=== PATIENT | male | born 1940 | race Caucasian/White ===

== ENCOUNTER 2016-08-31 13:36 | Observation (INO) | payer OTHER ==
[~2016-08-31 13:36] MED LIST: ceFAZolin 2 GM/DEXTROSE 100 ML IV ONE
[2016-08-31] MEDS ORDERED: LIDOCAINE 1% 2 ML INJ ONE (14:20)
[2016-08-31] MEDS ORDERED: CEFAZOLIN 2 GM/DEXTROSE/100 ML BAG IV ONE (14:20)
[2016-08-31] MEDS ORDERED: fentaNYL 100 MCG/2 ML INJ ONE ×2 (15:45→16:22)
[2016-08-31] MEDS ORDERED: MIDAZOLAM 2 MG/2 ML VIAL ONE (15:47)
[2016-08-31] MEDS ORDERED: ROCURONIUM 50 MG/5 ML VIAL ONE (16:19)
[2016-08-31] MEDS ORDERED: ROPIVACAINE HCL 150 MG/30 ML INJ ONE (16:19)
[2016-08-31] MEDS ORDERED: LIDOCAINE 2% 5 ML SDV ONE (16:19)
[2016-08-31] MEDS ORDERED: GLYCOPYRROLATE 0.2 MG/1 ML VIAL ONE (16:19)
[2016-08-31] MEDS ORDERED: PROPOFOL/EMULSION 500 MG/50 ML BOTTLE IV ONE (16:20)
[2016-08-31] MEDS ORDERED: PROPOFOL 200 MG/20 ML VIAL ONE ×2 (16:20→18:35)
[2016-08-31] MEDS ORDERED: ROPIVACAINE HCL 20 MG/10 ML INJ EP ONE ×2 (16:21→18:10)
[2016-08-31] MEDS ORDERED: LIDOCAINE 2% JELLY 5 ML TUBE ONE (16:30)
[2016-08-31] MEDS ORDERED: DEXAMETHASONE 4 MG/ML VIAL ONE (18:16)
[2016-08-31] MEDS ORDERED: ONDANSETRON 4 MG/2 ML VIAL ONE (18:17)
[2016-08-31] MEDS ORDERED: SKIN ADHESIVE (DERMABOND) 1 EACH TP ONE (18:28)
[2016-08-31] MEDS ORDERED: ACETAMINOPHEN 325 MG TAB PO PRN (19:03)
[2016-08-31] MEDS ORDERED: ONDANSETRON 4 MG/2 ML VIAL IVP PRN (19:03)
[2016-08-31] MEDS ORDERED: HYDROCODONE/APAP 5/325 TAB PO PRN (19:03)
[2016-08-31] MEDS ORDERED: OXYCODONE/APAP 5/325 TAB PO PRN (19:03)
[2016-08-31] MEDS: ceFAZolin 2 GM/DEXTROSE 100 ML IV SCH (20:59)
[2016-08-31] MEDS: DOCUSATE SODIUM 100 MG CAP PO SCH (20:59)
[2016-08-31] MEDS: LR 1,000 ML IV SCH (21:07)
[2016-09-01] MEDS: KETOROLAC 15 MG/1 ML SDV IVP SCH ×3 (00:21→12:51)
[2016-09-01] MEDS ORDERED: TRAVOPROST Z 0.004% 2.5 ML OPHT.BTL EACHEYE SCH (01:30)
[2016-09-01] MEDS: TIMOLOL 0.5% 15 ML OPHT.BTL EACHEYE SCH ×2 (01:53→10:25)
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
--- NOTE | 2016-09-01 04:58 | GOP ---
[f rep st] OPERATIVE REPORT DATE OF OPERATION: 08/31/2016 SURGEON: Antoine Duron MD CALF SKINNER: Petra Pierce PAC, medically required for positioning of the arm during arthroscopic r ight shoulder surgery. Careful retraction of vital neurovascular structures during open subpectoral biceps tenodesis. PREOPERATIVE DIAGNOSIS: 1. Right shoulder osteoarthritis. 2. Right shoulder loose bodies. 3. Right shoulder labral tear. 4. Right shoulder synovitis and bursitis. 5. Right shoulder impingement. POSTOPERATIVE DIAGNOSIS: 1. Right shoulder osteoarthritis. 2. Right shoulder loose bodies. 3. Right shoulder labral tear. 4. Right shoulder synovitis and bursitis. 5. Right shoulder impingement. PROCEDURE PERFORMED: 1. Arthroscopic labral debridement. 2. Arthroscopic right shoulder capsular release. 3. Anterior interval release. 4. Posterior capsular release. 5. Arthroscopic subacromial decompression. 6. Arthroscopic extensive synovectomy and bursectomy. 7. Open subpectoral biceps tenodesis. 8. Loose body removal. FINDINGS: ESTIMATED BLOOD LOSS: Minimal. INDICATIONS: 76-year-old male, history of cardiac history and disease. Clinical radiograph and MRI confirm osteoarthritic pattern of the right shoulder. We discussed the idea of arthroscopic proced ure versus total shoulder. His recently and does not have the ability to commit to a tota l shoulder replacement rehab protocol. He has tried injections which helped temporarily. He unders tands the risks with shoulder arthroscopy and understands the benefits and risks, benefits, expectat ions, alternatives, right shoulder arthroscopy and cleaning up and debridement, and I think this rigo uld help his pain. He would like to proceed. Patient identified in the preoperative holding area. Consent, laterality, and preoperative antibiot ics were confirmed/delivered. All questions were answered. His daughter was available at the [facility] for questions and answers. DESCRIPTION OF PROCEDURE: Patient had an interscalene block. Brought into the operating room. Gen eral anesthesia. Beach chair position. All extremities well padded. The right upper extremity was prepped and draped in the usual sterile fashion. Surgical time-out was performed. Standard posterior portal technique, diagnostic arthroscopy, including a grade 4 glenoid from the eq uatorial aspect inferiorly. Grade 4 humeral head. Calcific tendinopathy of the labrum circumferent ially. There were a few loose bodies measuring 4 to 5 mm in the axillary recess that were removed f rom an anterior interval portal. Subscap was intact. Rotator interval was taken. Portal sites wer e switched and we did a posterior capsular release. Biceps tenotomy was performed. The biceps was torn and flat. The rotator cuff was reasonably intact with calcific tendinopathy. Attention was then turned to the open subpectoral portion. The arm was taken in 90 degrees of abduc tion and external rotation. We did a 4 cm axillary incision. He had about 2 to 3 cm of adipose tis malena. Subpectoral area was developed. We took Hohmann above and below the humerus. We retrieved th e biceps tendon. A flood of loose bodies and synovial tissues came out which looked like it was ruthie bored into the bicipital tendon sheath. We had about 5 loose bodies measuring 4 to 6 mm in diameter . These were evacuated. Attention then turned to the subpectoral biceps tenodesis. We had also did a fiber loop whipstitch in the tendon about a cm from the musculotendinous junction. The spade tip pin was placed in the hu merus and a 6 mm unicortical reamer was made. We placed the pack button and dunked it bicortically and tensioned this and tied multiple half hitches to secure it. We washed out the wound with 250 cc of warm normal saline. Closed the wound with 4-0 Monocryl. Arm was taken down to adduction. We entered the subacromial space. Did a thorough bursectomy. He had a calcified CA ligament. He had a large anterior acromial spur. We did a subacromial decompres nasrin from a lateral and a posterior cutting block portal, did a thorough bursectomy, preserving the medial bursa out to the lateral gutter. The rotator cuff tendon looked entirely intact. The AC moi nt looked slightly arthritic but had good spacing without any spurs inferiorly and we left it alone. All arthroscopic fluid and debris were removed. Portal sites closed with 4-0 Monocryl. Mastisol, Steri-Strips, Xeroform, 4 x 4's, Medipore tape, and a regular sling applied. IMPLANTS USED: Raya button for the open subpectoral biceps tenodesis by Arthrex. COMPLICATIONS: None. TOTAL SURGICAL TIME: 1 hour and 15 minutes. DISPOSITION: Extubated, awake to the PACU in stable condition. /[id number]/MODL
[2016-09-01] MEDS: ceFAZolin 2 GM/DEXTROSE 100 ML IV SCH (06:05)
[2016-09-01] MEDS: LR 1,000 ML IV SCH (06:17)
[2016-09-01 08:03] VITALS: RESP 18
[2016-09-01] MEDS: DOCUSATE SODIUM 100 MG CAP PO SCH (08:25)
[2016-09-01] MEDS ORDERED: ENOXAPARIN 40 MG/0.4 ML SYR SC SCH (09:00)
[2016-09-01] MEDS ORDERED: OMEGA-3 FATTY ACIDS 1,000 MG CAP PO SCH (09:00)
[2016-09-01] MEDS ORDERED: LISINOPRIL 10 MG TAB PO SCH (09:00)
[2016-09-01] MEDS ORDERED: METOPROLOL SUCCINATE XR 25 MG TAB PO SCH (09:00)
[2016-09-01] MEDS ORDERED: ASCORBIC ACID 500 MG TAB PO SCH (09:00)
[2016-09-01] MEDS ORDERED: ATORVASTATIN CALCIUM 20 MG TAB PO SCH (09:00)
[2016-09-01] MEDS ORDERED: PANTOPRAZOLE SODIUM 40 MG TAB PO SCH (09:00)
[2016-09-01] MEDS ORDERED: Herbals/Supplements -Info Only PO SCH (09:00)
[2016-09-01 12:39] VITALS: BP 146/75; PULSE 75; TEMP 98.4; O2SAT 92
--- NOTE | 2016-09-01 13:21 | HOSPPROG ---
Hospitalist Progress Note Assessment/Plan: 76y male with shoulder surgery and HTN. Reviewed with Dr Sanchez. #HTN better on home meds #Pain controlled #Shoulder per Oliverio #Dispo per Oliverio, medically ok for DC Subjective: Up in chair. Feels well. Eager to go home. Objective: Vital Signs Temp Pulse Resp BP Pulse Ox 36.9 C 75 18 146/75 H 92 09/01/16 12:00 09/01/16 12:00 09/01/16 12:00 09/01/16 12:00 09/01/16 12:00 08/31/16 09/01/16 09/02/16 05:59 05:59 05:59 Intake Total 1525 750 Output Total 1125 250 Balance 400 500 - Physical Exam Constitutional: no apparent distress, appears nourished, not in pain Eyes: PERRL, anicteric sclera, EOMI Ears, Nose, Mouth, Throat: moist mucous membranes, hearing normal, ears appear normal Cardiovascular: No JVD, No edema Respiratory: no respiratory distress, reduced air movement Gastrointestinal: No tenderness, No ascites Skin: warm, normal color Musculoskeletal: joint tenderness, pain with ROM Neurologic: AAOx3 Psychiatric: interacting appropriately, not anxious ICD10 Worksheet Patient Problems: Problems Problem Status Onset Cellulitis Acute
--- NOTE | 2016-09-01 16:05 | SOAPPROG ---
SOAP Progress Note Assessment/Plan: Assessment: 76 yo m, pod#1 s/p rt shoulder arthroscope and debridement and biceps tenodesis, - proph: incentive spirometry, colace 100 bid q12h constipation -pain control: oxycodone 5mg 1-2 tab q4-6h prn pain, tylenol 1000 q8h prn pain - f/u w/ dr. miller or staff at [facility] for orthopedics in 1 week for check in - dc home 09/01/16 with daughter - 09/01/16 16:02 Subjective: Austyn reports he is doing well, denies any issues, states his pain is well controlled, reports he is voiding freely, has not had a bowel movement yet, but feels/hears his abdominal sounds and is moving gas. patient denies fevers/chills , denies cp/sob, denies n/v/d/c Objective: Vital Signs Temp Pulse Resp BP Pulse Ox 36.9 C 75 18 146/75 H 92 09/01/16 12:00 09/01/16 12:00 09/01/16 12:00 09/01/16 12:00 09/01/16 12:00 08/31/16 09/01/16 09/02/16 05:59 05:59 05:59 Intake Total 1525 750 Output Total 1125 250 Balance 400 500 RUE: sling in place, dressings c/d/i, nvid w/ brisk cap refill, no shoulder rom assessed, full wrist/digital rom, radial/ulnar pulse 2+ ICD10 Worksheet Patient Problems: Problems Problem Status Onset Cellulitis Acute
== END 2016-09-01 15:22 | disposition home or self-care (01) ==
LOC: FSGY 13:36 → F3E 19:10
PROVIDERS: ADMIT Orthopaedic Surgery; ATTEND Orthopaedic Surgery
PROC: 0RBJ4ZZ Excision of Right Shoulder Joint, Percutaneous Endoscopic Approach (ICD-10-PCS; principal; 2016-08-31 15:00)
PROC: 0RCJ4ZZ Extirpation of Matter from Right Shoulder Joint, Percutaneous Endoscopic Approach (ICD-10-PCS; principal; 2016-08-31 15:00)
PROC: 0MB14ZZ Excision of Right Shoulder Bursa and Ligament, Percutaneous Endoscopic Approach (ICD-10-PCS; principal; 2016-08-31 15:00)
PROC: 0LS30ZZ Reposition Right Upper Arm Tendon, Open Approach (ICD-10-PCS; principal; 2016-08-31 15:00)
DX: M13.811 Other specified arthritis, right shoulder (principal); M75.51 Bursitis of right shoulder; M75.21 Bicipital tendinitis, right shoulder; M75.41 Impingement syndrome of right shoulder; M75.81 Other shoulder lesions, right shoulder; M65.9 Synovitis and tenosynovitis, unspecified; M24.011 Loose body in right shoulder; I97.3 Postprocedural hypertension; I25.10 Atherosclerotic heart disease of native coronary artery without angina pectoris; E78.5 Hyperlipidemia, unspecified; I10 Essential (primary) hypertension; K21.9 Gastro-esophageal reflux disease without esophagitis; Z85.46 Personal history of malignant neoplasm of prostate; Z95.5 Presence of coronary angioplasty implant and graft
CPT/HCPCS: 23430; 29823; 29826; 97161; 97165; C1713; G0378; G8978; G8979; G8987; G8988; G8989; J0690; J1100; J1650; J1885; J2250; J2405; J2704; J2795; J3010

== ENCOUNTER → 2017-02-02 | Outpatient (CLI) | payer OTHER | LOC: FIMAGING 07:52 | PROVIDERS: ATTEND Physical Medicine & Rehabilitation | DX: M48.06 Spinal stenosis, lumbar region (principal); M51.26 Other intervertebral disc displacement, lumbar region ==

== ENCOUNTER → 2017-05-10 | Outpatient (CLI) | payer OTHER, MEDICARE | LOC: BHFA 08:30 | PROVIDERS: ATTEND Internal Medicine Cardiovascular Disease | DX: I25.10 Atherosclerotic heart disease of native coronary artery without angina pectoris (principal) | CPT/HCPCS: 78452; 93017; A9500; J2785 ==

== ENCOUNTER → 2018-01-27 | Outpatient (CLI) | payer OTHER, MEDICARE | LOC: FIMAGING 11:44 | PROVIDERS: ATTEND Orthopaedic Surgery | PROC: 3E0U3GC Introduction of Other Therapeutic Substance into Joints, Percutaneous Approach (ICD-10-PCS; principal; 2018-01-27) | DX: M53.3 Sacrococcygeal disorders, not elsewhere classified (principal) | CPT/HCPCS: 0232T; G0260 ==

== ENCOUNTER → 2018-04-22 | Outpatient (CLI) | payer OTHER ==
[~2018-04-22] MED LIST changes: +BUPIVACAINE 0.25% 30 ML SDV ONE; +DEPO METHYLPREDNISOLONE 40 MG/ML SDV ONE; +LIDOCAINE 1% 300 MG/30 ML SDV ONE; -ceFAZolin 2 GM/DEXTROSE 100 ML IV ONE
== END ==
LOC: FIMAGING 12:48
PROVIDERS: ATTEND Radiology Diagnostic Radiology
DX: M19.011 Primary osteoarthritis, right shoulder (principal)
CPT/HCPCS: J1030

== ENCOUNTER → 2018-06-13 | Outpatient (CLI) | payer OTHER, MEDICARE | LOC: BHFA 10:15 | PROVIDERS: ATTEND Internal Medicine Interventional Cardiology | DX: I10 Essential (primary) hypertension (principal); E78.5 Hyperlipidemia, unspecified ==

== ENCOUNTER 2018-10-30 16:25 | Inpatient (IN) | payer OTHER, MEDICARE ==
--- NOTE | 2018-10-30 16:27 | EDPHY ---
H & P Time Seen by Provider: 10/30/18 16:26 HPI/ROS: CHIEF COMPLAINT: Dyspnea, hypertension HISTORY OF PRESENT ILLNESS: The patient presents to the ED with increasing dyspnea and high blood pressure. The patient has had a history of fairly difficult to manage high blood pressure in his changed heart medications number of times over the past several weeks. The patient is currently on labetalol, lisinopril and diltiazem. The patient does have history of chronic lower extremity venous insufficiency and chronic lower extremity stasis. The patient denies any complaints of acute lower extremity pain or swelling. The patient does have dressings applied to his legs bilaterally. The patient denies any fever, cough or congestion. He denies acute chest pain. The patient was noted to have mild hypoxemia several days ago. The patient typically does not wear oxygen. The patient does endorse symptoms of PND and orthopnea. REVIEW OF SYSTEMS: A comprehensive 10 point review of systems is otherwise negative aside from elements mentioned in the history of present illness. Source: Patient Exam Limitations: No limitations - Medical/Surgical History Hx Asthma: No Hx Chronic Respiratory Disease: No Hx Diabetes: No Hx Cardiac Disease: Yes Hx Renal Disease: No Hx Cirrhosis: No Hx Alcoholism: No Hx HIV/AIDS: No Hx Splenectomy or Spleen Trauma: No Other PMH: cardiac stents/back fusion/htn, CHRONIC ARTERIAL INSUFFICIENCY, RIGHT TOE AMPUTATION - Social History Smoking Status: Former smoker - Physical Exam Exam: General Appearance: Alert, no distress Eyes: Pupils equal and round no pallor or injection ENT, Mouth: Mucous membranes moist Respiratory: Distant breath sounds by Cardiovascular: Regular rate and rhythm Gastrointestinal: Abdomen is soft and nontender, no masses, bowel sounds normal Neurological: 5/5 strength all 4 extremities Skin: Warm and dry, no rashes Musculoskeletal: Neck is supple nontender Extremities: Bilateral lower extremity edema and changes consistent with stasis dermatitis Psychiatric: Patient is oriented X 3, there is no agitation Constitutional: Initial Vital Signs Temperature (C) 36.6 C 10/30/18 16:33 Heart Rate 87 10/30/18 16:33 Respiratory Rate 23 H 10/30/18 16:33 Blood Pressure 199/116 H 10/30/18 16:33 O2 Sat (%) 70 L 10/30/18 16:33 O2 Delivery Mode Room Air O2 (L/minute) 2 Allergies/Adverse Reactions: No Known Allergies Allergy (Verified 10/30/18 16:36) Home Medications: Medication Instructions Recorded Acetaminophen [Tylenol ES 500 mg 500 mg PO Q6H PRN 10/30/18 (*)] Aspirin EC [Aspirin EC 81 mg (*)] 81 mg PO DAILY 10/30/18 Atorvastatin Calcium [Lipitor 40 20 mg PO DAILY 10/30/18 mg (*)] Cetirizine [ZyrTEC 10 mg (*)] 10 mg PO DAILY PRN 10/30/18 Diltiazem HCl 90 mg PO BID 10/30/18 Herbals/Supplements -Info Only 1 ea PO DAILY 10/30/18 Labetalol HCl 300 mg PO BID 10/30/18 Lisinopril [Zestril 40 mg (*)] 40 mg PO DAILY 10/30/18 Tamsulosin HCl [Flomax 0.4 MG (*)] 0.4 mg PO DAILY 10/30/18 Medical Decision Making - Diagnostics EKG Interpretation: EKG: Complete interpretation has been separately recorded in the [employer] archive. Summary impression: Sinus rhythm, rate 85, LVH is noted, nonspecific ST T wave present Imaging Results: Imaging Impressions Chest X-Ray 10/30/18 16:42 Impression: Mild CHF with bilateral pleural effusions, larger left than right. Procedures: Procedure: Limited transthoracic echocardiogram. A limited transthoracic echocardiogram was performed and interpreted by myself for cardiomegaly noted on chest x-ray. Limited transthoracic echocardiogram: The pericardium was visualized and found to be negative for pericardial fluid. Cardiac activity was present. The study was negative for significant pericardial effusion. ED Course/Re-evaluation: The patient is brought to the emergency department mild dyspnea and elevated blood pressure. The patient was noted to have a room air oxygen saturation of 70% on room air. Patient was placed on 2 L of nasal cannula oxygen and did have improvement of his oxygen saturation to 95%. The patient was noted to be hypertensive upon arrival with a blood pressure of 199/116. Patient was treated with 10 mg of IV labetalol. Chest x-ray does demonstrate significant cardiomegaly from a prior study that have been obtained years ago. I did perform a limited bedside ultrasound which demonstrated no evidence of significant pericardial effusion or tamponade. The patient's blood pressure is currently to 206/95. Nitroglycerin drip will be started. The patient is also given 40 IV Lasix in the ED. Consultation was made with Dr. Itz Sanchez from the hospitalist service. Differential Diagnosis: Differential diagnosis considered includes congestive heart failure, pericardial effusion, myocardial infarction, hypertensive emergency Critical Care Time: Critical care time exclusive of procedures and exclusive of the PA's time was 45 minutes, performed by myself, Idris Singh MD. Patient presents to the ED with markedly elevated blood pressure and acute congestive heart failure. The patient was treated with IV Lasix, labetalol and started on nitroglycerin drip. The patient will be admitted to a monitored bed for further stabilization this evening. - Data Points Laboratory Results: Laboratory Results 10/30/18 16:40 10/30/18 16:40 10/30/18 10/30/18 10/30/18 16:49 16:40 16:40 WBC 5.47 10^3/uL 10^3/uL (3.80-9.50) RBC 4.04 10^6/uL L 10^6/uL (4.40-6.38) Hgb 11.6 g/dL L g/dL (13.7-17.5) Hct 37.5 % L % (40.0-51.0) MCV 92.8 fL fL (81.5-99.8) MCH 28.7 pg pg (27.9-34.1) MCHC 30.9 g/dL L g/dL (32.4-36.7) RDW 17.2 % H % (11.5-15.2) Plt Count 249 10^3/uL 10^3/uL (150-400) MPV 10.1 fL fL (8.7-11.7) Neut % (Auto) 73.0 % % (39.3-74.2) Lymph % (Auto) 10.8 % L % (15.0-45.0) Irion % (Auto) 11.0 % % (4.5-13.0) Eos % (Auto) 3.7 % % (0.6-7.6) Baso % (Auto) 1.1 % % (0.3-1.7) Nucleat RBC Rel Count 0.0 % % (0.0-0.2) Absolute Neuts (auto) 3.99 10^3/uL 10^3/uL (1.70-6.50) Absolute Lymphs (auto) 0.59 10^3/uL L 10^3/uL (1.00-3.00) Absolute Monos (auto) 0.60 10^3/uL 10^3/uL (0.30-0.80) Absolute Eos (auto) 0.20 10^3/uL 10^3/uL (0.03-0.40) Absolute Basos (auto) 0.06 10^3/uL 10^3/uL (0.02-0.10) Absolute Nucleated RBC 0.00 10^3/uL 10^3/uL (0-0.01) Immature Gran % 0.4 % % (0.0-1.1) Immature Gran # 0.02 10^3/uL 10^3/uL (0.00-0.10) RBC/WBC/PLT Morphology TNP Platelet Estimate TNP Sodium 141 mEq/L mEq/L (135-145) Potassium 4.6 mEq/L mEq/L (3.5-5.2) Chloride 111 mEq/L H mEq/L (97-110) Carbon Dioxide 22 mEq/l mEq/l (22-31) Anion Gap 8 mEq/L mEq/L (6-14) BUN 37 mg/dL H mg/dL (7-23) Creatinine 1.4 mg/dL H mg/dL (0.7-1.3) Estimated GFR 49 Glucose 100 mg/dL mg/dL (70-100) Calcium 9.0 mg/dL mg/dL (8.5-10.4) POC Troponin I 0.02 ng/mL ng/mL (0.00-0.08) NT-Pro-B Natriuret Pep 53095 pg/mL H pg/mL (0-450) Medications Given: Discontinued Medications Labetalol HCl (Trandate Injection) 10 mg IVP ONCE ONE Stop: 10/30/18 17:11 Last Admin: 10/30/18 17:16 Dose: 10 mg Point of Care Test Results: Chemistry 10/30/18 16:49 POC Troponin I 0.02 ng/mL ng/mL (0.00-0.08) Departure - Departure Disposition: [facility] Inpatient Acute Clinical Impression: Hypertensive urgency, Congestive heart failure Condition: Fair
--- NOTE | 2018-10-30 17:05 | CPEKG ---
Test Reason : OPEN Blood Pressure : / mmHG Vent. Rate : 075 BPM Atrial Rate : 075 BPM P-R Int : 288 ms QRS Dur : 130 ms QT Int : 422 ms P-R-T Axes : 065 012 000 degrees QTc Int : 472 ms Sinus rhythm Prolonged VA interval LVH with secondary repolarization abnormality Confirmed by Idris Singh ([id number]) on 10/30/2018 5:05:26 PM Referred By: Idris Singh Confirmed By:Idris Singh
[2018-10-30] MEDS ORDERED: LABETALOL HCL 5 MG/ML 20 ML MDV IVP ONE (17:10)
[2018-10-30 17:24] LABS: PLATELET COUNT 249 10^3/uL (150-400)
[2018-10-30] MEDS ORDERED: FUROSEMIDE 40 MG/4 ML VIAL IVP ONE (17:58)
[2018-10-30] MEDS ORDERED: NITROGLYCERIN/DEXTROSE 250 ML IV SCH ×2 (18:00→19:00)
[2018-10-30] MEDS ORDERED: ONDANSETRON 4 MG/2 ML VIAL IVP PRN (18:35)
[2018-10-30] MEDS ORDERED: ONDANSETRON DISINTEGRATING 4 MG TAB PO PRN (18:35)
[2018-10-30] MEDS ORDERED: CETIRIZINE 10 MG TAB PO PRN (18:42)
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
[2018-10-30] MEDS: LABETALOL HCL 200 MG TAB PO SCH (20:39)
[2018-10-30] MEDS: ACETAMINOPHEN 325 MG TAB PO PRN (20:42)
[2018-10-30] MEDS: ASPIRIN EC 81 MG TAB PO SCH (20:42)
[2018-10-30] MEDS: DILTIAZEM 30 MG TAB PO SCH (20:44)
[2018-10-31] MEDS: ACETAMINOPHEN 325 MG TAB PO PRN ×3 (05:18→21:49)
[2018-10-31] MEDS: LABETALOL HCL 200 MG TAB PO SCH ×2 (08:33→20:11)
[2018-10-31] MEDS: DILTIAZEM 30 MG TAB PO SCH ×2 (08:34→20:13)
[2018-10-31] MEDS: ASPIRIN EC 81 MG TAB PO SCH (08:34)
[2018-10-31] MEDS: TAMSULOSIN HCL 0.4 MG CAP PO SCH (08:34)
[2018-10-31] MEDS: ATORVASTATIN CALCIUM 20 MG TAB PO SCH (08:34)
[2018-10-31] MEDS: ENOXAPARIN 40 MG/0.4 ML SYR SC SCH (08:35)
[2018-10-31] MEDS: FUROSEMIDE 40 MG/4 ML VIAL IVP SCH ×2 (08:35→14:06)
[2018-10-31] MEDS ORDERED: LISINOPRIL 40 MG TAB PO SCH (09:00)
[2018-10-31] MEDS ORDERED: Herbals/Supplements -Info Only PO SCH (09:00)
--- NOTE | 2018-10-31 10:07 | PDMN ---
Medical Necessity Medical necessity: [facility] M197 HTN, 2 days: 78 yo w/ increased WOB and BLE edema. Eval reveals HTN urgency 180s-200s/80s-90s requiring nitroglycerin gtt, and CHF - serial tronpinins, echo, cont TELE monitoring, IV diuresis. Creatinine is elevated at 1.4. Meets [facility] IP criteria for HTN emergency w/ heart failure and acute or worsening end organ damage. Hx HTN, CAD w/ remote stents, PVD
--- NOTE | 2018-10-31 11:37 | ECHO ---
[email or web address] [address] Main: [phone] Echocardiography Examination Transthoracic Name: RACHAEL FLORES MR#: [id number] Study Date: 10/31/2018 Study Time: 08:34 AM Date of : 1940 Age: 78 year(s) Height: 167.6 cm (66 in.) Weight: 101.15 kg (223 lb.) BSA: 2.09 m2 Gender: Male Examination: Echo Contrast: Image Quality: Adequate Rhythm: Heart Rate: BP: 174 mmHg/76 mmHg Indication: CHF/HTN/hx - stents Procedure Staff Referring Physician: Canal Tender: Jaleesa Germain RDCS Reading Physician: Kyle Heart MD Requesting Provider: Ordering Physician: Itz Sanchez Indication: CHF/HTN/hx - stents Measurements Chambers AV/MV Label Value Normal Value Label Value Normal Value LVOTd 2.1 cm (1.9cm - 2.1cm) AR PHT 0.31 s LVDd, 2D 4.9 cm (4.2cm - 5.9cm) AR PHT 314 ms LVDs, 2D 3.3 cm (2.1cm - 4cm) AR Vmax 4.25 m/s IVSd, 2D 1.2 cm (0.6cm - 1.1cm) AV PGmean 8 mmHg LVPWd, 2D 1.4 cm (0.6cm - 1cm) AV Vmax 2.09 m/s LVEF, 2D 59 % (54% - 74%) MV E Vmax 1.03 m/s LA Volume, BP 106 ml (18ml - 58ml) MV A Vmax 0.84 m/s LADs, 2D 5.2 cm (3cm - 4cm) MV E/A 1.23 LAESV index, BP 50.7 ml/m2 MV E/E' lateral 13.9 Additional Vessels MV E/E' septal 19.9 (0.45 - 1.25) Label Value Normal Value MV E' septal 0.05 m/s AoAsc 3.7 cm MV E' lateral 0.07 m/s AoRoot, MM 3.4 cm (2.2cm - 3.7cm) MV E/E' mean 17.17 MV E' mean 0.06 m/s TV/PV Label Value Normal Value RA Pressure 5 mmHg RVSP 39 mmHg TR Pmax 34 mmHg Patient: RACHAEL FLORES Study Date: 10/31/2018 Page 1 of 3 08:34 AM TR Vmax 2.9 m/s Conclusions Left Ventricle: LV base inferior/inferoseptal white are akinetic. All remaining LV white have normal segmental motion.. EF range is estimated at 60 % - 65 %. There is mild concentric left ventricular hypertrophy. Right Ventricle: Right ventricular systolic function is normal. Mitral Valve: Mild to moderate mitral regurgitation. Aortic Valve: Mild aortic regurgitation is present. Tricuspid Valve: Mild tricuspid regurgitation. Right Ventricular systolic pressure is measured at 39 mmHg. Pericardium: Trivial anterior pericardial effusion. Overall Conclusions: There is no previous echocardiogram for comparison. Findings Left Ventricle: LV base inferior/inferoseptal white are akinetic. All remaining LV white have normal segmental motion.. Left ventricle is normal in size. EF range is estimated at 60 % - 65 %. There is mild concentric left ventricular hypertrophy. Diastolic dysfunction is present. IVS: The septum is intact. Right Ventricle: Normal size right ventricle. Right ventricular systolic function is normal. Left Atrium: The left atrium is moderately to severely dilated. IAS: Normal appearing atrial septum. Right Atrium: The right atrium is mildly dilated. Mitral Valve: Mild to moderate mitral regurgitation. No mitral valve stenosis. Mitral annular calification. Aortic Valve: Mild aortic regurgitation is present. There is no aortic stenosis. Aortic leaflets exhibit mild calcification. Tricuspid Valve: Tricuspid valve leaflets are normal in appearance and function. Mild tricuspid regurgitation. No tricuspid valve stenosis. Right Ventricular systolic pressure is measured at 39 mmHg. Pulmonary artery pressure normal. Pulmonic Valve: Pulmonic valve is poorly visualized. No pulmonic valve regurgitation is evident. There is no pulmonic valve stenosis. Aorta: Patient: RACHAEL FLORES Study Date: 10/31/2018 Page 2 of 3 08:34 AM The aorta is normal. The aortic root size in M-mode measures 3.4 cm. The ascending aorta measures 3.7 cm. Aorta Measurements AoRoot, MM is 3.4 cm. IVC: The inferior vena cava is normal in size and course. Pericardium: Trivial anterior pericardial effusion. There is a left pleural effusion. Exam Details Procedure Ordered: Echo Procedure Status: Routine study Image Quality: Adequate Facility Location: Cardiac Echo 1 (No Signature Object) Patient: RACHAEL FLORES Study Date: 10/31/2018 Page 3 of 3 08:34 AM [id number]
--- NOTE | 2018-10-31 11:52 | WOCRNPDOC ---
WOCRN Advanced Assessment Note - Skin Integrity Problem, Advanced Assess Left Lower Leg Dressing Type: Cale Bandage, Other Other Dressing Type: contact layer Dressing Description: Clean/Dry, Intact Closure Description: Approximated Exudate Amount: None Integumentary Issue Intervention: Dressing Removed Vickie Wound Tissue: Erythema, Intact, Thin Vickie Wound Swelling: None Wound Bed Color: [place] Wound Bed Constitution: Granulation Tissue Wound Edges: Well Defined Skin Integrity Problem Comment: Unna boot removed from patient's left lower leg. Patient confirms he had a debridement of a wound on his lower leg about 2.5 weeks ago. There is some obvious scarring on the anterior and posterior lower leg but no open areas. Recommend keeping the skin hydrated with topical lotion. We discussed compression but the patient refuses at this time. Skin condition discussed with OTILIO Flores. Patient does not have any questions at this time. Wound care will not continue to round.
--- NOTE | 2018-10-31 12:39 | ASMTCMCOM ---
CM Note CM Note Notes: 10/31/2018 Case Management Note Pt admitted for CHF hypertension and hypoxemia. Discussed during rounds. Daughter Reyna present [phone]. Reyna lives in [place] but comes to stay with pt every 3 weeks for a 3 week stay. Daughter Derik [phone] lives local. Pt is . Pt pcp is Dr. Reeder. There are no therapy evals ordered today. Provided unskilled caregiver list, blue book and information on the [facility]. Case Management d/c poc: anticipating home with family support and follow up as directed. Case Management available if needs change. Date Signed: 10/31/2018 12:37 PM Electronically Signed By:Gabriela Herndon RN
--- NOTE | 2018-10-31 12:56 | PDCARPN ---
Cardiology Progress Note Chief Complaint: Shortness of breath Assessment/Plan: Assessment: Problem list: 1. Hypertension 2. Coronary artery disease 3. Diastolic heart failure secondary to hypertension and coronary artery disease Impression: Stable hemodynamics overnight with continued moderate elevation in blood pressure. Significant diuresis with IV Lasix. Tolerating labetalol and Cale inhibitor at this point. Recommendations: Discontinue nitroglycerin Continue IV diuresis with labetalol and CALE-inhibitor with transition to oral diuretic tomorrow. Ambulation. Subjective: Uneventful night. Headache with nitroglycerin. Discussed side effects related to amlodipine and bisoprolol. Denies PND orthopnea. He has had no syncope or near syncope. Chronic peripheral edema is unchanged. Reviewed/Discussed With: family Objective: Vital Signs (8 Hrs) Temp Pulse Resp BP Pulse Ox 10/31/18 11:07 37.1 C 70 20 169/76 H 94 10/31/18 08:33 71 174/76 H 10/31/18 07:17 36.6 C 68 20 166/76 H 92 Intake/Output (24 Hrs) 10/30/18 10/31/18 11/01/18 05:59 05:59 05:59 Intake Total 400 Output Total 3150 150 Balance -2750 -150 Intake: Oral (ml) 400 Output: Urine (ml) 3150 150 Bedside Commode 800 Urinal 2350 150 Other: Weight 101.4 kg Number of Voids Bedside Commode 3 Incontinence 1 Urinal 3 Result Diagrams: 10/30/18 16:40 10/31/18 03:20 Cardiac Labs: Cardiac Lab Results (72 Hrs) 10/31/18 10/30/18 03:20 18:55 Troponin I 0.022 0.019 - Physical Exam Constitutional: healthy appearing, no apparent distress Cardiovascular: regular rate and rhythm Peripheral Pulses: 1+: carotid (R), carotid (L) Respiratory: clear to auscultate bilat Gastrointestinal: other (Tympanitic) Skin: erythema Neurologic: AAOx3 Psychiatric: cooperative ICD10 Worksheet Patient Problems: Problems Problem Status Onset Chronic Disease Mgmt/Transitional Care Acute Cellulitis Acute Hypertensive urgency Acute Congestive heart failure Acute Review of Systems - Review of Systems Constitutional: denies: chills, fever Respiratory: shortness of breath Cardiac: no symptoms reported Gastrointestinal/Abdominal: no symptoms reported Genitourinary: frequency Musculoskelatal: no symptoms Skin: no symptoms Neurological: no symptoms
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
[2018-10-31] MEDS: hydrALAZINE 20 MG/ML VIAL IVP PRN (16:20)
[2018-11-01] MEDS: hydrALAZINE 20 MG/ML VIAL IVP PRN (05:18)
[2018-11-01] MEDS: DILTIAZEM 30 MG TAB PO SCH (09:17)
[2018-11-01] MEDS: ASPIRIN EC 81 MG TAB PO SCH (09:17)
[2018-11-01] MEDS: ATORVASTATIN CALCIUM 20 MG TAB PO SCH (09:17)
[2018-11-01] MEDS: ENOXAPARIN 40 MG/0.4 ML SYR SC SCH (09:18)
[2018-11-01] MEDS: LABETALOL HCL 200 MG TAB PO SCH ×2 (09:18→21:24)
[2018-11-01] MEDS: TAMSULOSIN HCL 0.4 MG CAP PO SCH (09:18)
--- NOTE | 2018-11-01 09:49 | PDCARPN ---
Cardiology Progress Note Chief Complaint: Follow-up Assessment/Plan: Assessment: Problem list: 1. Hypertension 2. Coronary artery disease 3. Diastolic heart failure secondary to hypertension and coronary artery disease 4. Renal insufficiency 5. Hyperlipidemia 11/01/18 09:46 Impression: Aggressive diuresis overnight. Creatinine has increased suggesting intra-vascular volume depletion. Clinically improved. Recommendations: Transition to oral diuretic therapy today. Recheck creatinine tomorrow. Home likely tomorrow 10/31/18 Impression: Stable hemodynamics overnight with continued moderate elevation in blood pressure. Significant diuresis with IV Lasix. Tolerating labetalol and Cale inhibitor at this point. Recommendations: Discontinue nitroglycerin Continue IV diuresis with labetalol and CALE-inhibitor with transition to oral diuretic tomorrow. Ambulation. Subjective: Improved. No significant shortness of breath. Ambulating the halls. No PND orthopnea. No chest pain. Reviewed/Discussed With: family Objective: Medications Generic Name Dose Route Start Last Admin Trade Name Freq PRN Reason Stop Dose Admin Aspirin Buffered 81 mg 10/30/18 18:45 11/01/18 09:17 Aspirin Ec PO 04/28/19 18:44 81 mg DAILY [facility] Atorvastatin Calcium 20 mg 10/31/18 09:00 11/01/18 09:17 Lipitor PO 04/29/19 08:59 20 mg DAILY [facility] Diltiazem HCl 90 mg 10/30/18 21:00 11/01/18 09:17 Cardizem Immediate Release PO 04/28/19 20:59 90 mg BID [facility] Furosemide 40 mg 10/31/18 09:00 10/31/18 14:06 Lasix Injection IVP 04/29/19 08:59 40 mg BID@0900,1500 [facility] Labetalol HCl 300 mg 10/30/18 21:00 11/01/18 09:18 Trandate PO 04/28/19 20:59 300 mg BID [facility] Lisinopril 40 mg 10/31/18 09:00 10/31/18 08:34 Zestril PO 04/29/19 08:59 40 mg DAILY [facility] Tamsulosin HCl 0.4 mg 10/31/18 09:00 11/01/18 09:18 Flomax PO 04/29/19 08:59 0.4 mg DAILY [facility] Vital Signs (8 Hrs) Temp Pulse Resp BP Pulse Ox 11/01/18 09:17 69 11/01/18 08:30 72 92 11/01/18 06:55 36.5 C 60 3 L 150/70 H 97 11/01/18 05:18 163/71 H 11/01/18 04:00 36.6 C 59 L 19 163/71 H 96 11/01/18 02:19 82 L Intake/Output (24 Hrs) 10/31/18 11/01/18 11/02/18 05:59 05:59 05:59 Intake Total 400 775 Output Total 3150 2500 Balance -2750 -1725 Intake: Oral (ml) 400 775 Output: Urine (ml) 3150 2500 Bedside Commode 800 Catheter 300 Urinal 2350 2200 Other: Weight 101.4 kg 97.3 kg Number of Voids Bedside Commode 3 Incontinence 1 1 Toilet 1 Urinal 3 Number of Stools Toilet 1 Result Diagrams: 10/30/18 16:40 11/01/18 04:29 Cardiac Labs: Cardiac Lab Results (72 Hrs) 10/31/18 10/30/18 03:20 18:55 Troponin I 0.022 0.019 - Physical Exam Constitutional: obese Ears, Nose, Mouth, Throat: moist mucous membranes Cardiovascular: regular rate and rhythm Respiratory: clear to auscultate bilat Gastrointestinal: normoactive bowel sounds, no tenderness Musculoskeletal: no muscular tenderness Neurologic: AAOx3 Psychiatric: cooperative ICD10 Worksheet Patient Problems: Problems Problem Status Onset Chronic Disease Mgmt/Transitional Care Acute Cellulitis Acute Hypertensive urgency Acute Congestive heart failure Acute Review of Systems - Review of Systems Constitutional: denies: chills, fever EENTM: no symptoms reported Respiratory: no symptoms reported Cardiac: no symptoms reported Gastrointestinal/Abdominal: no symptoms reported Genitourinary: no symptoms
[2018-11-01] MEDS ORDERED: FUROSEMIDE 40 MG TAB PO SCH (10:00)
[2018-11-01] MEDS ORDERED: DILTIAZEM CD 300 MG CAP PO SCH ×2 (10:00→21:00)
[2018-11-01] MEDS: ACETAMINOPHEN 325 MG TAB PO PRN ×2 (10:01→21:25)
--- NOTE | 2018-11-01 13:21 | ASMTCMCOM ---
CM Note CM Note Notes: 11/01/2018 Case Management Note Therapies recommending home care. Met w/pt local daughter Derik to discuss home care options. Derik requested referral to [facility]. Faxed via [employer]. [facility] accepted pt. Case Management d/c poc: [facility] RN PT OT Case Management to follow. Date Signed: 11/01/2018 01:19 PM Electronically Signed By:Gabriela Herndon RN
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
[2018-11-02 04:58] LABS: INR 1.2 (0.83-1.16); PROTIME(PATIENT) 14.7 SEC (12.0-15.0)
[2018-11-02] MEDS: ASPIRIN EC 81 MG TAB PO SCH (09:19)
[2018-11-02] MEDS: TAMSULOSIN HCL 0.4 MG CAP PO SCH (09:19)
[2018-11-02] MEDS: ATORVASTATIN CALCIUM 20 MG TAB PO SCH (09:19)
[2018-11-02] MEDS: LABETALOL HCL 200 MG TAB PO SCH (09:19)
[2018-11-02] MEDS: ACETAMINOPHEN 325 MG TAB PO PRN (09:20)
[2018-11-02] MEDS: HEPARIN 5,000 UNIT/0.5 ML INJ SC SCH ×2 (13:00→21:35)
[2018-11-02] MEDS: CETIRIZINE 10 MG TAB PO SCH (13:00)
--- NOTE | 2018-11-02 13:20 | GCON ---
[f rep st] CONSULTATION NEPHROLOGY CONSULTATION DATE OF CONSULTATION: 11/02/2018 REASON FOR CONSULTATION: Acute kidney injury, accelerated hypertension. HISTORY OF PRESENT ILLNESS: This is a pleasant 78-year-old male with a past medical history signific ant for several issues, including prostate cancer, urinary incontinence, hypertension, and hyperlipid emia, who originally presented to [facility] on October 30, 2018, with shortness of breath and callie vated blood pressures. History is obtained from the medical record, the medical staff, the patient, and his daughter. The patient is a good historian. The patient has had hypertension for approximately 40 years. Over the past 2 years, he has had worse linda issues with control. This has been especially marked over the past year. In the past year, he has had several drug regimen changes, on behalf of his primary care physician, Dr. Reeder, Dr. Dahiana patel of Cardiology, and also by my partner, Dr. Garcia. The patient is unable to give clear detail s of all of his medication changes, but is able to give a good idea of what has been transpiring. Be cause of worsening blood pressure control, and some rise in his creatinine, he was switched off his A CE inhibitor and metoprolol, and ultimately was placed on amlodipine and labetalol. Following that, the patient developed symptoms of worsening exercise tolerance, shortness of breath, and some flushin g. He also noted he felt fatigued. He did not take his blood pressure during these times. He ultim ately went off these medications. The patient has also intermittently been on lisinopril. He believ es that when he takes lisinopril, he has worsening issues with urinary incontinence and frequency. In reviewing his laboratory studies, his creatinine was relatively normal up until 2017 when it was 1 .1. In 2019, it was 1.2 in July, rising to 2.0 in September, and has since ranged between 1.4 and 1. 6. The patient was seen by Dr. Garcia on October 05, 2018. At that time, he was noted to have a normal urinalysis. He had had an evaluation from Urology, which showed no significant postvoid resid ual. His creatinine was 2, but he recently had received Bactrim. No significant changes were made t o his medical regimen at that time, which included amlodipine and labetalol. Since that time, through the help of Cardiology, the patient was taken off his amlodipine, and placed on diltiazem. He has been maintained on lisinopril. He has also been on labetalol. As noted previ ously, the patient presented for admission to [facility] on October 30. At that time, he was having worsening breathing, worsening lower extremity edema, and a blood pressure as high as 220 /110. An echocardiogram on admission shows a preserved left ventricular ejection fraction, and mild pulmonary hypertension. He has undergone significant diuresis. With this, his weight has decreased from 101 kg to 98 kg. He was net -2750 mL on day #1, and 1700 mL on day #2. With this, his creatini ne is increased to 2.5 today. His lisinopril is now held, as are his diuretics. A fractional secret ion of sodium has been obtained that is low. The patient does have a history of peripheral vascular disease. He also has a history of chronic low er extremity edema. He admits to a rather high sodium diet. He does not take nonsteroidal medicatio ns. As related to the above findings, we are asked by Dr. Hinton to assist the patient's renal diagno sis and management. PAST MEDICAL HISTORY: 1. Recent rise in creatinine. 2. Peripheral vascular disease. 3. Coronary artery disease, status post coronary stenting. 4. Hypertension. 5. Right toe amputation. 6. Right shoulder degenerative disease. The patient had been scheduled for a shoulder replacement s urgery. CURRENT MEDICATIONS: Tylenol p.r.n., aspirin 81 mg daily, atorvastatin 20 mg daily, Zyrtec as needed , diltiazem 300 mg at bedtime scheduled, furosemide 40 mg daily, heparin subcutaneously, labetalol 30 0 mg twice daily, lisinopril 40 mg daily, Zofran p.r.n., tamsulosin 0.4 mg daily. FAMILY HISTORY: Noncontributory. SOCIAL HISTORY: The patient lives independently. He lives in [place]. 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 Sarah giles has a past smoking and alcohol history, but does not partake in either at present. He is here with a daughter from [place], who keeps close tabs on him. PHYSICAL EXAMINATION: GENERAL: At time of exam, the patient is appropriate and alert. VITAL SIGNS: Temperature--afebrile, pulse 56, blood pressure 156/75. HEENT: Eyes: Sclerae are clear. Orophary nx clear. NECK: No lymphadenopathy or thyromegaly. LUNGS: Clear to auscultation bilaterally. CAR DIOVASCULAR: Regular rate and rhythm without gallops or rubs. There is a systolic murmur at the lef t lower sternal border. ABDOMEN: Nontender. No organomegaly. /RECTAL: Deferred. EXTREMITIES: 3+ edema on the right, 1 to 2+ edema on the left. INTEGUMENT: Venous stasis is noted in the lower extremities, otherwise no suspicious lesions. NEUROLOGIC: No focal findings. LABORATORY STUDIES: Sodium 140, potassium 4.6, bicarbonate 23, BUN 54, creatinine 2.5. White count 5.4, hematocrit 37.5, platelets 249. IMPRESSION AND PLAN: 1. Acute kidney injury. The patient's creatinine is markedly elevated. This occurs in the face of diuresis and angiotensin-converting enzyme inhibition. The patient's renal ultrasound has not shown obstruction. The patient's urinalysis has been normal. He currently has a low fractional excretion of sodium. a. I do believe the patient could have large vessel renovascular disease, or small vessel disease. In any case, it would be appropriate to hold his angiotensin-converting enzyme inhibition at the pres ent time and follow. There is not evidence of underlying glomerular disease. As noted, the patient has not been on nonsteroidals, and I do not see other specific nephrotoxins. I suspect he is intrava scular volume depleted at the present time, with decreased autoregulation due to his angiotensin-conv erting enzyme inhibitor, and a large or small vessel vascular disease as noted above. We will monito r and expect him to show recovery. 2. Urologic. The patient does have a history of prostate cancer. His last PSA was around 6. His u rinary symptoms have improved some with Flomax. 3. Hypertension. His control has worsened in the past 2 years. By his history, I suspect he has a significant volume component. I also believe he needs better treatment of his systemic vascular resi stance. I suspect the patient will be poorly tolerant of blood pressures much lower than 140 systoli c. We had a lengthy conversation relating to the pathophysiology and treatment of hypertension. I w ould be in favor of getting him off his diltiazem, and treating him again with amlodipine. I believe he needs to be on beta blockade, given his coronary artery disease. However, I would target a heart rate in the 60s, which I believe he will tolerate better. I would consider moving him back to metop rolol. I will discuss this with Dr. Porter. For now, we will hold his angiotensin-converting enzy me inhibitor. We will educate on sodium restriction. 4. Cardiology. The patient has a history of coronary disease, and has some segmental wall motion ab normalities. His ejection fraction is normal, however. He does have some pulmonary hypertension, wh ich may make his creatinine more labile in the face of angiotensin-converting enzyme inhibition. 5. Anemia. The patient has a mild anemia. We will follow this. 6. Hypoxemia. This seems to be related to atelectasis and pleural effusions. I believe this reflec ts the fact he presented originally in a volume overloaded state. He will need to be on a sodium res triction, and will need to be maintained on some diuretic. I believe he is now intravascularly volum e depleted, although still has edema localized to his lower extremities, and has pleural effusions, t hat are not going to go away quickly. Thank you for allowing me to participate in this gentleman's care. Will continue to follow along john drake with you. /[id number]/MODL
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
--- NOTE | 2018-11-02 17:30 | SOAPPROG ---
SOAP Progress Note Assessment/Plan: Assessment: Problem list: 1. Hypertension 2. Coronary artery disease 3. Diastolic heart failure secondary to hypertension and coronary artery disease 4. Renal insufficiency 5. Hyperlipidemia 11/02/18 17:29 Impression: Increasing creatinine secondary to intravascular depletion after aggressive diuresis. Appreciate renal input. No further end-organ damage. Clinical follow-up. 11/01/18 09:46 Impression: Aggressive diuresis overnight. Creatinine has increased suggesting intra-vascular volume depletion. Clinically improved. Recommendations: Transition to oral diuretic therapy today. Recheck creatinine tomorrow. Home likely tomorrow 10/31/18 Impression: Stable hemodynamics overnight with continued moderate elevation in blood pressure. Significant diuresis with IV Lasix. Tolerating labetalol and Cale inhibitor at this point. Recommendations: Discontinue nitroglycerin Continue IV diuresis with labetalol and CALE-inhibitor with transition to oral diuretic tomorrow. Ambulation. Subjective: No complaints overnight Objective: Vital Signs Temp Pulse Resp BP Pulse Ox 36.4 C 56 L 16 129/56 H 92 11/02/18 15:51 11/02/18 15:51 11/02/18 15:51 11/02/18 15:51 11/02/18 15:51 Laboratory Results 11/02/18 03:14 11/01/18 11/02/18 11/03/18 05:59 05:59 05:59 Intake Total 775 610 683 Output Total 2500 305 Balance -1725 305 683 PT 14.7 SEC (12.0-15.0) 11/02/18 03:14 INR 1.20 (0.83-1.16) H 11/02/18 03:14 Physical Exam - Physical Exam General Appearance: alert, no apparent distress Respiratory: normal breath sounds Cardiac/Chest: No JVD Abdomen: soft ICD10 Worksheet Patient Problems: Problems Problem Status Onset Chronic Disease Mgmt/Transitional Care Acute Cellulitis Acute Hypertensive urgency Acute Congestive heart failure Acute
[2018-11-02] MEDS: METOPROLOL TARTRATE 25 MG TAB PO SCH (21:35)
[2018-11-03] MEDS: HEPARIN 5,000 UNIT/0.5 ML INJ SC SCH ×3 (06:11→21:30)
[2018-11-03] MEDS ORDERED: SODIUM CL NASAL 45 ML BTL EACHNARE PRN (06:47)
[2018-11-03] MEDS: METOPROLOL TARTRATE 25 MG TAB PO SCH ×2 (09:37→21:28)
[2018-11-03] MEDS: TAMSULOSIN HCL 0.4 MG CAP PO SCH (09:37)
[2018-11-03] MEDS: ASPIRIN EC 81 MG TAB PO SCH (09:37)
[2018-11-03] MEDS: ATORVASTATIN CALCIUM 20 MG TAB PO SCH (09:37)
[2018-11-03] MEDS: CETIRIZINE 10 MG TAB PO SCH (09:37)
[2018-11-03] MEDS: ACETAMINOPHEN 325 MG TAB PO PRN (09:40)
[2018-11-03] MEDS ORDERED: NS 1,000 ML IV SCH (10:30)
--- NOTE | 2018-11-03 10:36 | SOAPPROG ---
SOAP Progress Note Assessment/Plan: Assessment/Plan: AGUS on CKD 3: Cr up from 1.4 to now 3.1 in setting of lowering BP, lisinopril and Lasix. He has chronic swelling from lymphedema, echo actually with good EF but some diastolic dysfunction. FeNa low in setting of Lasix, truly prerenal. - No need for HD at this time. - Will give some gentle IVFs today. - Holding lisinopril and Lasix for now. - Will repeat urine studies tomorrow. - Will continue to monitor. - Avoid hypotension and nephrotoxins. HTN: BP improved from admission, would keep SBP goal of 140-160 for now. Pt now on amlodipine and metoprolol with BP at goal, will continue to monitor. Hypervolemia: pt has chronic swelling from lymphedema, difficult to treat with diuretics. Will place compression stockings. Subjective: No acute events overnight. Pt states his breathing feels comfortable. He notes that the swelling in his legs is chronic from lymphedema, R>L. Objective: Vital Signs Temp Pulse Resp BP Pulse Ox 37.0 C 65 18 160/81 H 96 11/03/18 07:17 11/03/18 07:17 11/03/18 07:17 11/03/18 07:17 11/03/18 07:17 Laboratory Results 11/03/18 03:10 11/02/18 11/03/18 11/04/18 05:59 05:59 05:59 Intake Total 610 1663 Output Total 305 400 Balance 305 1263 PT 14.7 SEC (12.0-15.0) 11/02/18 03:14 INR 1.20 (0.83-1.16) H 11/02/18 03:14 General: alert and oriented, no acute distress Eyes: EOMI, PERRL OP: Clear CV: RRR Resp: nonlabored respirations on NC, decreased breath sounds in bilateral bases Abd: Soft, NT/ND Ext: +3 edema RLE, +2 edema LLE Neuro: CN II-XII Grossly intact Psych: cooperative, appropriate mood and affect ICD10 Worksheet Patient Problems: Problems Problem Status Onset Chronic Disease Mgmt/Transitional Care Acute Congestive heart failure Acute Hypertensive urgency Acute Cellulitis Acute
[2018-11-03] MEDS ORDERED: amLODIPine BESYLATE 5 MG TAB PO SCH (12:17)
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
--- NOTE | 2018-11-03 16:18 | SOAPPROG ---
SOAP Progress Note Assessment/Plan: Assessment: Problem list: 1. Hypertension 2. Coronary artery disease 3. Diastolic heart failure secondary to hypertension and coronary artery disease 4. Renal insufficiency 5. Hyperlipidemia 11/03/18 16:17 Impression: Stable hemodynamics overnight. Creatinine still increased. Awaiting fall in value prior to discharge. No further recommendations. 11/02/18 17:29 Impression: Increasing creatinine secondary to intravascular depletion after aggressive diuresis. Appreciate renal input. No further end-organ damage. Clinical follow-up. 11/01/18 09:46 Impression: Aggressive diuresis overnight. Creatinine has increased suggesting intra-vascular volume depletion. Clinically improved. Recommendations: Transition to oral diuretic therapy today. Recheck creatinine tomorrow. Home likely tomorrow 10/31/18 Impression: Stable hemodynamics overnight with continued moderate elevation in blood pressure. Significant diuresis with IV Lasix. Tolerating labetalol and Cale inhibitor at this point. Recommendations: Discontinue nitroglycerin Continue IV diuresis with labetalol and CALE-inhibitor with transition to oral diuretic tomorrow. Ambulation. Subjective: Feeling well. No chest pain shortness of breath. No PND orthopnea. Objective: Vital Signs Temp Pulse Resp BP Pulse Ox 37.0 C 74 20 170/84 H 93 11/03/18 15:10 11/03/18 15:10 11/03/18 15:10 11/03/18 15:10 11/03/18 15:10 Laboratory Results 11/03/18 03:10 11/02/18 11/03/18 11/04/18 05:59 05:59 05:59 Intake Total 610 1663 Output Total 305 400 400 Balance 305 1263 -400 PT 14.7 SEC (12.0-15.0) 11/02/18 03:14 INR 1.20 (0.83-1.16) H 11/02/18 03:14 Physical Exam - Physical Exam General Appearance: alert, no apparent distress Neck: supple Respiratory: lungs clear Extremities: pedal edema Neuro/Psych: oriented x 3, No facial droop ICD10 Worksheet Patient Problems: Problems Problem Status Onset Chronic Disease Mgmt/Transitional Care Acute Cellulitis Acute Hypertensive urgency Acute Congestive heart failure Acute
[2018-11-03] MEDS: CANN-EASE 2 GM TUBE TP PRN (21:33)
[2018-11-04] MEDS: ACETAMINOPHEN 325 MG TAB PO PRN ×3 (00:56→23:03)
[2018-11-04] MEDS: HEPARIN 5,000 UNIT/0.5 ML INJ SC SCH ×4 (06:46→22:59)
[2018-11-04] MEDS: ASPIRIN EC 81 MG TAB PO SCH (08:46)
[2018-11-04] MEDS: METOPROLOL TARTRATE 25 MG TAB PO SCH ×2 (08:46→23:00)
[2018-11-04] MEDS: ATORVASTATIN CALCIUM 20 MG TAB PO SCH (08:47)
[2018-11-04] MEDS: TAMSULOSIN HCL 0.4 MG CAP PO SCH (08:47)
[2018-11-04] MEDS: CETIRIZINE 10 MG TAB PO SCH (08:47)
--- NOTE | 2018-11-04 09:09 | ASMTCMCOM ---
CM Note CM Note Notes: Patient chart reviewed for discharge planning purposes. Renal also following for elevated creatinine which is improving. Two supportive daughters. Will need HHC through [facility] upon discharge. CM to follow for needs. Plan: Home with [facility] HHC when medically cleared for discharge. Date Signed: 11/04/2018 09:08 AM Electronically Signed By:Sultana Soto RN
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
--- NOTE | 2018-11-04 14:27 | SOAPPROG ---
SOAP Progress Note Assessment/Plan: Assessment/Plan: AGUS on CKD 3: Cr up from 1.4 to now 3.1 in setting of lowering BP, lisinopril and Lasix. He has chronic swelling from lymphedema, echo actually with good EF but some diastolic dysfunction. FeNa low in setting of Lasix, truly prerenal. -given a little IVF on 11/03 but still net -315mL over 24hrs and Cr significantly down, so likely more BP/decreased effective circulatory volume- related - Holding lisinopril - ok to resume 40mg PO lasix - ok to keep BP meds where they are for now and CTM - Avoid hypotension and nephrotoxins. HTN: BP improved from admission. Pt now on amlodipine and metoprolol with BP at goal, will continue to monitor. -Wait for full effect of Amlodipine to start new chronic med *Ok to give PRN hydralazine as needed Hypervolemia: pt has chronic swelling from lymphedema, difficult to treat with diuretics. Has compression stockings, etc at home. --Discussed with patient that would be better to go by weight/breathing etc as sign of volume more than edema since he has other causes of edema Subjective: feeling ok. Denies shortness of breath, though still wearing O2 which is not chronic for him. Thinks that edema is at its baseline. Objective: Vital Signs Temp Pulse Resp BP Pulse Ox 36.6 C 65 18 166/77 H 94 11/04/18 12:00 11/04/18 12:00 11/04/18 12:00 11/04/18 12:00 11/04/18 12:00 Laboratory Results 11/04/18 03:20 11/03/18 11/04/18 11/05/18 05:59 05:59 05:59 Intake Total 1663 1160 Output Total 400 1475 Balance 1263 -315 PT 14.7 SEC (12.0-15.0) 11/02/18 03:14 INR 1.20 (0.83-1.16) H 11/02/18 03:14 General: alert and oriented, no acute distress Eyes: EOMI, PERRL OP: Clear CV: RRR Resp: nonlabored respirations on NC, decreased breath sounds in bilateral bases Abd: Soft, NT/ND Ext: +3 edema RLE, +2 edema LLE Neuro: CN II-XII Grossly intact Psych: cooperative, appropriate mood and affect ICD10 Worksheet Patient Problems: Problems Problem Status Onset Chronic Disease Mgmt/Transitional Care Acute Congestive heart failure Acute Hypertensive urgency Acute Cellulitis Acute
[2018-11-04] MEDS: FUROSEMIDE 40 MG TAB PO SCH ×2 (16:11→16:12)
[2018-11-04] MEDS ORDERED: FUROSEMIDE 40 MG TAB PO SCH (16:15)
[2018-11-05] MEDS: FUROSEMIDE 40 MG TAB PO SCH ×2 (06:43→10:46)
[2018-11-05] MEDS: METOPROLOL TARTRATE 25 MG TAB PO SCH ×2 (07:50→21:04)
[2018-11-05] MEDS: HEPARIN 5,000 UNIT/0.5 ML INJ SC SCH ×3 (07:51→22:14)
[2018-11-05] MEDS: CETIRIZINE 10 MG TAB PO SCH (08:06)
[2018-11-05] MEDS: ASPIRIN EC 81 MG TAB PO SCH (08:06)
[2018-11-05] MEDS: ATORVASTATIN CALCIUM 20 MG TAB PO SCH (08:06)
[2018-11-05] MEDS: TAMSULOSIN HCL 0.4 MG CAP PO SCH (08:06)
[2018-11-05] MEDS ORDERED: hydrALAZINE 20 MG/ML VIAL IVP PRN (10:32)
[2018-11-05] MEDS: CANN-EASE 2 GM TUBE TP PRN (10:46)
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
--- NOTE | 2018-11-05 14:13 | ASMTCMCOM ---
CM Note CM Note Notes: Pt's BP was elevated this morning. Amlodiplne was increased in an effort to control it. Per Nephrology, he needs to be monitored to give it time to work. Pt has been accepted by [facility]. CM will continue to follow. CM D/C plan: Home with [facility] services Date Signed: 11/05/2018 02:12 PM Electronically Signed By:Kristie [email or web address]
[2018-11-05] MEDS: hydrALAZINE 25 MG TAB PO SCH ×2 (17:33→21:04)
--- NOTE | 2018-11-05 19:20 | SOAPPROG ---
SOAP Progress Note Assessment/Plan: Assessment/Plan: AGUS on CKD 3: Cr up from 1.4--> 3.1 in setting of lowering BP, lisinopril and Lasix. He has chronic swelling from lymphedema, echo actually with good EF but some diastolic dysfunction. -given a little IVF on 11/03 but still net -315mL over 24hrs and Cr significantly down, so likely more BP/decreased effective circulatory volume- related - Holding lisinopril - ok to continue 40mg PO lasix - Cr down to 1.6 despite lasix - Avoid hypotension and nephrotoxins. *Ok for discharge on 11/06 from a nephrology perspective HTN: BP improved from admission. Pt now on amlodipine and metoprolol, BP above goal *Added Hydralazine on 11/05, watch BP Hypervolemia: pt has chronic swelling from lymphedema, difficult to treat with diuretics. Has compression stockings, etc at home. --Discussed with patient that would be better to go by weight/breathing etc as sign of volume more than edema since he has other causes of edema Hyperkalemia- K downtrending --holding lisinopril Subjective: Feeling ok. He thinks breathing is fine. Reports that he doesn't like the food here so he isn't eating much. Objective: Vital Signs Temp Pulse Resp BP Pulse Ox 37.1 C 74 20 180/81 H 96 11/05/18 15:20 11/05/18 15:20 11/05/18 15:20 11/05/18 17:33 11/05/18 15:20 Laboratory Results 11/05/18 03:17 11/04/18 11/05/18 11/06/18 05:59 05:59 05:59 Intake Total 1160 500 375 Output Total 1475 1975 2600 Balance -315 -2111 -2222 PT 14.7 SEC (12.0-15.0) 11/02/18 03:14 INR 1.20 (0.83-1.16) H 11/02/18 03:14 General: alert and oriented, no acute distress Eyes: EOMI, PERRL OP: Clear CV: RRR Resp: breathing comfortably on RA, few rales at baseline Abd: Soft, NT/ND Ext: +3 edema RLE, +2 edema LLE Neuro: CN II-XII Grossly intact Psych: cooperative, appropriate mood and affect ICD10 Worksheet Patient Problems: Problems Problem Status Onset Chronic Disease Mgmt/Transitional Care Acute Congestive heart failure Acute Hypertensive urgency Acute Cellulitis Acute
[2018-11-05] MEDS: ACETAMINOPHEN 325 MG TAB PO PRN (22:14)
[2018-11-06] MEDS: HEPARIN 5,000 UNIT/0.5 ML INJ SC SCH ×2 (06:38→15:02)
[2018-11-06] MEDS: ATORVASTATIN CALCIUM 20 MG TAB PO SCH (08:15)
[2018-11-06] MEDS: FUROSEMIDE 40 MG TAB PO SCH (08:15)
[2018-11-06] MEDS: CETIRIZINE 10 MG TAB PO SCH (08:15)
[2018-11-06] MEDS: hydrALAZINE 25 MG TAB PO SCH ×2 (08:15→16:56)
[2018-11-06] MEDS: ASPIRIN EC 81 MG TAB PO SCH (08:15)
[2018-11-06] MEDS: METOPROLOL TARTRATE 25 MG TAB PO SCH (08:15)
[2018-11-06] MEDS: TAMSULOSIN HCL 0.4 MG CAP PO SCH (08:15)
--- NOTE | 2018-11-06 10:22 | PDHOMEO2F ---
Home Oxygen Face to Face Home Orders: I certify that a physician or a nurse practitioner or physician's sales support assistant has had a [id number] encounter with this patient on the date of this order due to the diagnosis listed, which relates to the primary reason the patient requires home oxygen. Alternative treatments have been tried, or considered, and deemed ineffective. It is anticipated that supplemental oxygen will result in improvement with treatment. Home oxygen qualifying diagnosis: Diastolic Heart Failure SpO2 on room air (%): 86 Frequency of home oxygen needed: continuous Home oxygen liters per minute: 2 Home oxygen delivery device: nasal cannula Concentrator: Yes E-tanks for mobility and back up: Yes If ordering portable O2, is the patient mobile in the home?: Yes I certify that, based on these findings, the home oxygen is medically necessary for this patient for the following length of time. Length of time home oxygen needed: 99 years
--- NOTE | 2018-11-06 11:27 | PDIAF ---
- Diagnosis Diagnosis: CHF Code Status: Full Code - Medication Management Discharge Medications: electronically signed and located in the Home Medication List. - Orders Services needed: Home Residential Care Face to Face: I certify that this patient was under my care and that I had the required [id number] encounter meeting the encounter requirements on the discharge day. My findings support the fact that the patient is homebound as defined in Home Care Face to Face Continued: CMS Chapter 7 Medicare Benefits Manual 30.1.1 , The condition of the patient is such that there exists a normal inability to leave home and consequently, leaving home would require a considerable and taxing effort. Additional Instructions: Please followup with both your primary care physician and your disc recordist within the next 1-2 weeks after discharge from the hospital to review this hospitalization and obtain repeat labs to ensure your kidney function continues to improve. - Follow Up Care Current Providers and Referrals: Alfonso Reeder MD [Primary Care Provider] - As per Instructions Delmer Porter MD [Medical Doctor] -
--- NOTE | 2018-11-06 11:41 | ASDISCHSUM ---
Discharge Information Plan Status:Home with Home Health Medically Cleared to Leave: Discharge Date: D/C Disposition: ADT D/C Disposition: Projected Discharge Date:11/06/2018 12:00 PM Transportation at D/C: Discharge Delay Reason: Follow-Up Date:11/06/2018 12:00 PM Discharge Slot: Final Diagnosis: Placement Information Referral Type:*Home Health Care Services Referral ID:[id number] Provider Name:[facility] Address 1:[address] Phone Number: Address 2: Fax Number: [facility]:[place] Selection Factors: State:[place] Patient Contact Information Contact Name:MONSTER Relationship:Daughter Address: City: [facility] Phone: [facility] Code: Email: Financial Information Financial Class:Medicare Primary Plan Desc:MEDICARE INPATIENT Primary Plan Number:[id number] Secondary Plan Desc:[employer]/MDR SUPPLEMENT Secondary Plan Number:[id number] Assessment Information LACE LACE Length of stay for Answers: 7-13 days current admission Acuity / Level of Answers: Yes Care: Did the patient have an inpatient admission? Comorbidities - select Answers: Opioid dependence all that apply / Chronic pain Peripheral vascular disease Other Notes: HTN # of Emergency department Answers: 1-2 visits in the last 6 months Score: 15 Date Signed: 11/06/2018 11:40 AM Electronically Signed By:Kristie Patrick.RN [facility] CM Progress Note CM Note CM Note Notes: 10/31/2018 Case Management Note Pt admitted for CHF hypertension and hypoxemia. Discussed during rounds. Daughter Reyna present [phone]. Reyna lives in [place] but comes to stay with pt every 3 weeks for a 3 week stay. Daughter Derik [phone] lives local. Pt is . Pt pcp is Dr. Reeder. There are no therapy evals ordered today. Provided unskilled caregiver list, blue book and information on the [facility]. Case Management d/c poc: anticipating home with family support and follow up as directed. Case Management available if needs change. Date Signed: 10/31/2018 12:37 PM Electronically Signed By:Gabriela Herndon RN [facility] CM Progress Note CM Note CM Note Notes: 11/01/2018 Case Management Note Therapies recommending home care. Met w/pt local daughter Derik to discuss home care options. Derik requested referral to [facility]. Faxed via [employer]. [facility] accepted pt. Case Management d/c poc: HC RN PT OT Case Management to follow. Date Signed: 11/01/2018 01:19 PM Electronically Signed By:Gabriela Herndon RN [facility] CM Progress Note CM Note CM Note Notes: Patient chart reviewed for discharge planning purposes. Renal also following for elevated creatinine which is improving. Two supportive daughters. Will need HHC through [facility] upon discharge. CM to follow for needs. Plan: Home with [facility] HHC when medically cleared for discharge. Date Signed: 11/04/2018 09:08 AM Electronically Signed By:Sultana Soto RN [facility] CM Progress Note CM Note CM Note Notes: Pt's BP was elevated this morning. Amlodiplne was increased in an effort to control it. Per Nephrology, he needs to be monitored to give it time to work. Pt has been accepted by [facility]. CM will continue to follow. CM D/C plan: Home with [facility] services Date Signed: 11/05/2018 02:12 PM Electronically Signed By:Kristie Corado Intervention Information
--- NOTE | 2018-11-06 11:53 | ASMTDCNOTE ---
Case Management Discharge Discharge Order Complete? Answers: Yes Patient to Obtain Answers: via [facility] Transportation Arranged Answers: Family/Friends Family Notified Answers: Yes Notes: patient called his Discharge Comments Notes: Pt is being discharged to his home today. He will have homecare services from [facility]. D/C orders sent to them by [facility]. Date Signed: 11/06/2018 11:52 AM Electronically Signed By:Kristie Corado
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
[2018-11-06 15:16] VITALS: BP 179/76
--- NOTE | 2018-11-06 17:45 | SOAPPROG ---
SOAP Progress Note Assessment/Plan: Assessment/Plan: AGUS on CKD 3: Cr up from 1.4--> 3.1 in setting of lowering BP, lisinopril and Lasix. He has chronic swelling from lymphedema, echo actually with good EF but some diastolic dysfunction. -given a little IVF on 11/03 but still net -315mL over 24hrs and Cr significantly down, so likely more BP/decreased effective circulatory volume- related - Holding lisinopril - continue 40mg PO lasix-- counseled patient to weigh himself daily and call Dr. Beth if weight increasing or decreases by >5lbs from time of admission. --Patient will get labs drawn at either PCP's office or cardiology within the next week - Cr down to 1.5 despite lasix - Avoid hypotension and nephrotoxins. *Has appointment with Dr. Beth on 10/30. Will call if any questions/ concerns HTN: BP improved from admission. Pt now on amlodipine and metoprolol, *Patient will monitor BP at home. If consistently >160 systolic, will call Dr. Beth Hypervolemia: pt has chronic swelling from lymphedema, difficult to treat with diuretics. Has compression stockings, etc at home. --Discussed with patient that would be better to go by weight/breathing etc as sign of volume more than edema since he has other causes of edema Hyperkalemia- K downtrending --holding lisinopril --discussed following low K diet as outpatient Subjective: Feeling well today. He is looking forward to going home. He is all ready for discharge, just waiting for home O2 to be delivered. Feels like he is urinating a lot with the 40mg of PO lasix. Objective: Vital Signs Temp Pulse Resp BP Pulse Ox 37.2 C 73 12 179/76 H 96 11/06/18 15:14 11/06/18 15:14 11/06/18 15:14 11/06/18 15:14 11/06/18 15:14 Laboratory Results 11/06/18 03:30 11/05/18 11/06/18 11/07/18 05:59 05:59 05:59 Intake Total 500 775 Output Total 7724 3700 Balance -1475 -2925 PT 14.7 SEC (12.0-15.0) 11/02/18 03:14 INR 1.20 (0.83-1.16) H 11/02/18 03:14 General: alert and oriented, no acute distress Eyes: EOMI, PERRL OP: Clear CV: RRR Resp: breathing comfortably on O2, lungs clear Abd: Soft, NT/ND Ext: +2 bilateral LE (slightly decreased from before) Neuro: CN II-XII Grossly intact Psych: cooperative, appropriate mood and affect - Time Spent With Patient Time Spent With Patient: >30min spent on the care of this patient with >50% of time spent on counseling and coordination of care ICD10 Worksheet Patient Problems: Problems Problem Status Onset Chronic Disease Mgmt/Transitional Care Acute Congestive heart failure Acute Hypertensive urgency Acute Cellulitis Acute
--- NOTE | 2018-11-10 15:43 | CPEKG ---
Test Reason : OPEN Blood Pressure : / mmHG Vent. Rate : 071 BPM Atrial Rate : 071 BPM P-R Int : 279 ms QRS Dur : 135 ms QT Int : 399 ms P-R-T Axes : 058 035 200 degrees QTc Int : 434 ms Sinus rhythm Prolonged MN interval Nonspecific intraventricular conduction delay Nonspecific repol abnormality, diffuse leads Confirmed by Mark Soares ([id number]) on 11/10/2018 3:43:11 PM Referred By: Itz Sanchez Confirmed By:Mark Soares
== END 2018-11-06 19:09 | disposition home health service (06) | DRG 291 ==
LOC: F2W 18:30
PROVIDERS: ADMIT Internal Medicine; ATTEND Internal Medicine
DX: I13.0 Hypertensive heart and chronic kidney disease with heart failure and stage 1 through stage 4 chronic kidney disease, or unspecified chronic kidney disease (principal); I50.33 Acute on chronic diastolic (congestive) heart failure; J90 Pleural effusion, not elsewhere classified; N17.9 Acute kidney failure, unspecified; I16.0 Hypertensive urgency; N18.3 Chronic kidney disease, stage 3 (moderate); E87.5 Hyperkalemia; E66.9 Obesity, unspecified; I25.10 Atherosclerotic heart disease of native coronary artery without angina pectoris; E78.5 Hyperlipidemia, unspecified; I73.9 Peripheral vascular disease, unspecified; D64.9 Anemia, unspecified; M19.019 Primary osteoarthritis, unspecified shoulder; I89.0 Lymphedema, not elsewhere classified; Y24.9XXS Unspecified firearm discharge, undetermined intent, sequela; Z68.38 Body mass index [BMI] 38.0-38.9, adult; Z87.891 Personal history of nicotine dependence; Z85.46 Personal history of malignant neoplasm of prostate; Z95.5 Presence of coronary angioplasty implant and graft; Z89.421 Acquired absence of other right toe(s)
CPT/HCPCS: 84484-ER; 96374; 97116-GP; 97161-GP; 97165-GO; 97530-GO; 97535-GO; J0360; J1644; J1650; J1940

== ENCOUNTER 2018-11-15 11:12 | Inpatient (IN) | payer OTHER, MEDICARE | END 2018-11-23 13:40 | disposition home or self-care (01) | LOC: F2W 13:58 ==